=== PATIENT | female | born 2000 | race American Indian/Alaskan Native ===

== ENCOUNTER 2019-10-30 22:18 | Outpatient (CLI) | payer MEDICAID ==
[2019-10-30 22:39] VITALS: BP 112/64
[2019-10-30] MEDS ORDERED: LACTATED RINGERS 1,000 ML IV ONE (22:56)
[2019-10-30] MEDS ORDERED: LACTATED RINGERS 1,000 ML ONE (23:04)
[2019-10-30 23:25] LABS: Bacteria,Urine 1+ /HPF (Negative); Bilirubin,Urine NEG (Negative); Blood,Urine NEG (Negative); Color,Urine Yellow (Yellow); Mucus,Urine 3+ /HPF; Protein,Urine <15 mg/dL mg/dL (Negative)
[2019-10-31] MEDS ORDERED: ACETAMINOPHEN 500 MG TAB PO ONE (00:05)
== END 2019-10-31 00:26 | disposition home or self-care (01) ==
LOC: TRG 22:18 → APU 22:21 → TRG 10-31 00:26
PROVIDERS: ATTEND Obstetrics & Gynecology
DX: O26.893 Other specified pregnancy related conditions, third trimester (principal); M54.5 Low back pain; R10.12 Left upper quadrant pain; O47.03 False labor before 37 completed weeks of gestation, third trimester; Z3A.33 33 weeks gestation of pregnancy
CPT/HCPCS: 59025; 81001; 96360; J7120

== ENCOUNTER 2019-12-11 05:28 | Outpatient (CLI) | payer MEDICAID | END 2019-12-11 06:54 | disposition home or self-care (01) | LOC: TRG 05:28 | PROVIDERS: ATTEND Obstetrics & Gynecology | DX: O47.1 False labor at or after 37 completed weeks of gestation (principal); Z3A.39 39 weeks gestation of pregnancy | CPT/HCPCS: 59025 ==

== ENCOUNTER 2020-02-27 22:39 | Emergency (ER) | payer MEDICAID ==
[2020-02-27 22:46] VITALS: BP 117/67
--- NOTE | 2020-02-27 22:53 | Emergency Department Report ---
- General Chief complaint: Skin Rash Stated complaint: RIGHT SIDE SWOLLEN Time Seen by Provider: 02/27/20 22:47 Source: patient Mode of arrival: Ambulatory Limitations: No Limitations - History of Present Illness complaint: insect bite/sting (To the right hip to 3 days ago that now is very pruritic and swollen in nature reports no tenderness no fever chills or sweats. Not responding to AMD ointment) Tetanus Up to Date: yes Severity: mild Consistency: constant Improves with: none Worsens with: none Context: none Associated symptoms: itching - Related Data Home Medications Medication Instructions Recorded Confirmed Last Taken Vitamin 1 tab PO DAILY 12/11/19 12/11/19 12/09/19 Previous Rx's Medication Instructions Recorded Last Taken Type Ferrous Sulfate [Feosol 325 MG tab] 325 mg PO BID #60 tablet 12/12/19 Unknown Rx Ibuprofen [Motrin] 800 mg PO Q8HR PRN #30 tablet 12/12/19 Unknown Rx hydrOXYzine HCL [Atarax] 25 mg PO Q6HR PRN #20 tablet 02/27/20 Unknown Rx Allergies Allergy/AdvReac Type Severity Reaction Status Date / Time No Known Allergies Allergy Verified 10/30/19 22:52 Abscess Boil HPI - HPI Chief Complaint: Skin Rash Stated Complaint: RIGHT SIDE SWOLLEN Time Seen by Provider: 02/27/20 22:47 Home Medications: Home Medications Medication Instructions Recorded Confirmed Last Taken Vitamin 1 tab PO DAILY 12/11/19 12/11/19 12/09/19 Previous Rx's Medication Instructions Recorded Last Taken Type Ferrous Sulfate [Feosol 325 MG tab] 325 mg PO BID #60 tablet 12/12/19 Unknown Rx Ibuprofen [Motrin] 800 mg PO Q8HR PRN #30 tablet 12/12/19 Unknown Rx hydrOXYzine HCL [Atarax] 25 mg PO Q6HR PRN #20 tablet 02/27/20 Unknown Rx Allergies/Adverse Reactions: Allergies Allergy/AdvReac Type Severity Reaction Status Date / Time No Known Allergies Allergy Verified 10/30/19 22:52 ED Review of Systems ROS: Stated complaint: RIGHT SIDE SWOLLEN Other details as noted in HPI Comment: All other systems reviewed and negative ED Past Medical Hx - Past Medical History Previous Medical History?: No Hx Hypertension: No Hx Congestive Heart Failure: No Hx Diabetes: No Hx Deep Vein Thrombosis: No Hx Renal Disease: No Hx Sickle Cell Disease: No Hx Seizures: No Hx Asthma: No Hx COPD: No - Surgical History Past Surgical History?: No - Social History Smoking Status: Never Smoker Substance Use Type: None - Medications Home Medications: Home Medications Medication Instructions Recorded Confirmed Last Taken Type Vitamin 1 tab PO DAILY 12/11/19 12/11/19 12/09/19 History Ferrous Sulfate [Feosol 325 MG tab] 325 mg PO BID #60 tablet 12/12/19 Unknown Rx Ibuprofen [Motrin] 800 mg PO Q8HR PRN #30 tablet 12/12/19 Unknown Rx hydrOXYzine HCL [Atarax] 25 mg PO Q6HR PRN #20 tablet 02/27/20 Unknown Rx ED Physical Exam - General Limitations: No Limitations General appearance: alert, in no apparent distress - Head Head exam: Present: atraumatic, normocephalic - Eye Eye exam: Present: normal appearance, PERRL, EOMI Pupils: Present: normal accommodation - ENT ENT exam: Present: normal exam, mucous membranes moist - Neck Neck exam: Present: normal inspection - Respiratory Respiratory exam: Present: normal lung sounds bilaterally. Absent: respiratory distress - Cardiovascular Cardiovascular Exam: Present: regular rate, normal rhythm. Absent: systolic mu rmur, diastolic murmur, rubs, gallop - GI/Abdominal GI/Abdominal exam: Present: soft, normal bowel sounds - Extremities Exam Extremities exam: Present: normal inspection - Back Exam Back exam: Present: normal inspection - Neurological Exam Neurological exam: Present: alert, oriented X3 - Psychiatric Psychiatric exam: Present: normal affect, normal mood - Skin Skin exam: Present: warm, dry, intact, urticaria. Absent: rash - Expanded Skin Exam Expanded 1 - Area of the hive no induration noted. No abscess no fluctuance ED Course Vital Signs 02/27/20 22:43 Temperature 98.2 F Pulse Rate 99 H Respiratory 20 Rate Blood Pressure 117/67 O2 Sat by Pulse 98 Oximetry Critical care attestation.: If time is entered above; I have spent that time in minutes in the direct care of this critically ill patient, excluding procedure time. ED Disposition Clinical Impression: Hive, Insect bite Disposition: DC-01 TO HOME OR SELFCARE Is pt being admited?: No Does the pt Need Aspirin: No Condition: Stable Instructions: Rash, Adult, Hives, Insect Bite, Adult, [id number] Additional Instructions: Please try [id number] Benadryl cream and hydrocortisone cream mixed together in conjunction with Claritin or Gem. Also apply ice to the area to help decrease the inflammatory cascade. If no improvement after 3 to 4 days please seek reevaluation Prescriptions: hydrOXYzine HCL [Atarax] 25 mg PO Q6HR PRN #20 tablet PRN Reason: Itching Referrals: [facility] [Provider Group] - 3-5 Days
== END 2020-02-27 22:57 | disposition home or self-care (01) ==
LOC: ED 22:39
DX: L50.9 Urticaria, unspecified (principal); Z79.899 Other long term (current) drug therapy; W57.XXXA Bitten or stung by nonvenomous insect and other nonvenomous arthropods, initial encounter; Y93.89 Activity, other specified; Y92.89 Other specified places as the place of occurrence of the external cause; Y99.8 Other external cause status
CPT/HCPCS: 99282

== ENCOUNTER 2021-01-11 12:06 | Outpatient (CLI) | payer MEDICAID ==
[2021-01-11 12:39] VITALS: BP 116/67
[2021-01-11] MEDS ORDERED: LACTATED RINGERS 1,000 ML IV ONE (13:00)
[2021-01-11] MEDS ORDERED: ONDANSETRON 4 MG/2 ML INJ IV ONE (13:00)
[2021-01-11 14:51] LABS: Bacteria,Urine 1+ /HPF (Negative); Bilirubin,Urine NEG (Negative); Blood,Urine NEG (Negative); Color,Urine Yellow (Yellow); Mucus,Urine 3+ /HPF
== END 2021-01-11 15:40 | disposition home or self-care (01) ==
LOC: TRG 12:06 → APU 12:09 → TRG 15:40
PROVIDERS: ATTEND Obstetrics & Gynecology
DX: O21.2 Late vomiting of pregnancy (principal); O26.892 Other specified pregnancy related conditions, second trimester; R10.9 Unspecified abdominal pain; R53.1 Weakness; Z3A.20 20 weeks gestation of pregnancy
CPT/HCPCS: 81001; 87086; 96361; 96374; J2405; J7120; J3490

== ENCOUNTER 2021-04-09 11:01 | Outpatient (CLI) | payer MEDICAID ==
[2021-04-09 11:29] VITALS: BP 109/63
[2021-04-09 12:59] LABS: Bilirubin,Urine NEG (Negative); Blood,Urine MOD (Negative); Color,Urine Yellow (Yellow); Mucus,Urine FEW /HPF; Urobilinogen,Urine < 2.0 mg/dL (<2.0)
== END 2021-04-09 13:39 | disposition home or self-care (01) ==
LOC: TRG 11:01 → APU 11:02 → TRG 13:39
PROVIDERS: ATTEND Obstetrics & Gynecology
DX: O46.93 Antepartum hemorrhage, unspecified, third trimester (principal); O62.9 Abnormality of forces of labor, unspecified; O26.893 Other specified pregnancy related conditions, third trimester; R10.2 Pelvic and perineal pain; Z3A.33 33 weeks gestation of pregnancy
CPT/HCPCS: 59025; 81001; 87086; 96360; J7120

== ENCOUNTER 2021-05-12 19:53 | Outpatient (CLI) | payer MEDICAID ==
[2021-05-12 21:19] LABS: Bacteria,Urine 1+ /HPF (Negative); Mucus,Urine 3+ /HPF
[2021-05-12 21:33] LABS: Bilirubin,Urine Negative (Negative); Blood,Urine Negative (Negative); Color,Urine Yellow (Yellow)
[2021-05-12 21:34] LABS: Urobilinogen,Urine < 2.0 mg/dL (<2.0)
[2021-05-12] MEDS ORDERED: LIDOCAINE-MPF (1%) 10 MG/1 ML VIAL 5 ML INFILTRATI ONE (23:37)
[2021-05-12 23:50] VITALS: BP 116/62
== END 2021-05-12 23:39 | disposition home or self-care (01) ==
LOC: TRG 19:53 → APU 19:54 → TRG 23:39
PROVIDERS: ATTEND Obstetrics & Gynecology
DX: Z34.93 Encounter for supervision of normal pregnancy, unspecified, third trimester (principal); Z3A.38 38 weeks gestation of pregnancy
CPT/HCPCS: 81001; 87086; J0696; J3490

== ENCOUNTER 2021-05-14 04:42 | Outpatient (CLI) | payer MEDICAID ==
[2021-05-14 05:44] LABS: Mucus,Urine FEW /HPF
[2021-05-14 05:45] LABS: Color,Urine Straw (Yellow)
[2021-05-14 05:47] LABS: Bilirubin,Urine Negative (Negative)
[2021-05-14 05:48] LABS: Blood,Urine Trace (Negative)
[2021-05-14 05:49] LABS: Protein,Urine <30 mg dL mg/dL (Negative); Urobilinogen,Urine < 2.0 mg/dL (<2.0)
[2021-05-14 08:15] VITALS: BP 101/63
[2021-05-14] MEDS ORDERED: ACETAMINOPHEN W/CODEINE 300-30 MG TAB PO NR (08:34)
== END 2021-05-14 09:03 | disposition home or self-care (01) ==
LOC: TRG 04:42 → APU 04:43 → TRG 09:03
PROVIDERS: ATTEND Obstetrics & Gynecology
DX: Z34.93 Encounter for supervision of normal pregnancy, unspecified, third trimester (principal); Z3A.38 38 weeks gestation of pregnancy
CPT/HCPCS: 59025; 81001; Q0177

== ENCOUNTER 2021-05-16 13:26 | Outpatient (CLI) | payer MEDICAID ==
[2021-05-16 14:05] VITALS: BP 119/72
== END 2021-05-16 14:58 | disposition home or self-care (01) ==
LOC: TRG 13:26 → APU 13:28 → TRG 14:58
PROVIDERS: ATTEND Obstetrics & Gynecology
DX: Z34.93 Encounter for supervision of normal pregnancy, unspecified, third trimester (principal); Z3A.38 38 weeks gestation of pregnancy
CPT/HCPCS: 59025

== ENCOUNTER 2021-05-17 21:40 | Inpatient (IN) | payer MEDICAID ==
[2021-05-17] MEDS ORDERED: LACTATED RINGERS 1,000 ML ONE (22:30)
[2021-05-17] MEDS ORDERED: LIDOCAINE (2%) 20 MG/1 ML VIAL 20 ML MDV INFILTRATI ONE (22:55)
[2021-05-17] MEDS ORDERED: MINERAL OIL 30 ML ORAL LIQD PO PRN (22:55)
[2021-05-17] MEDS ORDERED: NALOXONE 0.4 MG/1 ML INJ IV PRN (22:55)
[2021-05-17] MEDS ORDERED: LOPERAMIDE 2 MG CAP PO PRN (22:55)
[2021-05-17] MEDS ORDERED: fentaNYL 100 MCG/2 ML INJ IV PRN (22:55)
[2021-05-17] MEDS ORDERED: BUTORPHANOL 2 MG/1 ML INJ IV PRN (22:55)
[2021-05-17] MEDS ORDERED: miSOPROStol 200 MCG TAB PR PRN (22:55)
[2021-05-17] MEDS ORDERED: OXYTOCIN 10 UNIT/1 ML INJ IM PRN (22:55)
[2021-05-17] MEDS ORDERED: CARBOPROST TROMETHAMINE 250 MCG/1 ML INJ IM PRN (22:55)
[2021-05-17] MEDS ORDERED: ACETAMINOPHEN 325 MG TAB PO PRN (22:55)
[2021-05-17] MEDS ORDERED: TERBUTALINE 1 MG/1 ML INJ SUB-Q PRN (22:55)
[2021-05-17] MEDS ORDERED: METHYLERGONOVINE MALEATE 0.2 MG/ML VIAL IM PRN (22:55)
[2021-05-17] MEDS ORDERED: ePHEDrine SULFATE 50 MG/1 ML INJ IV PRN ×2 (22:55→23:41)
[2021-05-17] MEDS ORDERED: ONDANSETRON 4 MG/2 ML INJ IV PRN (22:55)
[2021-05-17] MEDS ORDERED: OXYTOCIN DRIP 30 UNITS/500 ML BAG IV SCH (23:00)
[2021-05-17 23:27] LABS: Hemoglobin 10.8 gm/dl (10.1-14.3); Mean Corpuscular HGB Conc 33 % (30-34); Mean Corpuscular Volume 84 fl (79-97); Platelet Count 181 K/mm3 (140-440); Red Blood Count 3.92 M/mm3 (3.65-5.03)
[2021-05-17 23:31] LABS: Red Cell Distribution Width 26.8 % (13.2-15.2)
[2021-05-17] MEDS ORDERED: NALOXONE 2 MG/2 ML INJ IV PRN (23:41)
[2021-05-17] MEDS: LACTATED RINGERS 1,000 ML IV SCH (23:41)
[2021-05-17] MEDS ORDERED: fentaNYL-BUPIV 2 MCG/ML-0.125% 200 MCG/100 ML BAG EPIDURAL SCH (23:45)
--- NOTE | 2021-05-18 00:05 | Anesthesia Consultation ---
Anesthesia Consult and Med Hx Date of service: 05/18/21 - Airway Anesthetic Teeth Evaluation: Poor ROM Head & Neck: Adequate Mental/Hyoid Distance: Adequate Mallampati Class: Class II Intubation Access Assessment: Probably Good - Pulmonary Exam CTA: Yes - Cardiac Exam Cardiac Exam: RRR - Pre-Operative Health Status ASA Pre-Surgery Classification: ASA2 Proposed Anesthetic Plan: Epidural - Pulmonary Hx Asthma: No COPD: No Hx Pneumonia: No - Cardiovascular System Hx Hypertension: No - Central Nervous System Hx Seizures: No Hx Psychiatric Problems: No - Endocrine Hx Renal Disease: No Hx End Stage Renal Disease: No Hx Hypothyroidism: No Hx Hyperthyroidism: No - Hematic Hx Anemia: Yes Hx Sickle Cell Disease: No - Other Systems Hx Alcohol Use: No Hx Substance Use: No
--- NOTE | 2021-05-18 00:07 | Progress Note ---
Labor Epidural - Labor Epidural Start Time: 23:44 Stop Time: 23:53 Performed by:: DYLON DICKSON Procedure: Patient is requesting epidural for labor pain. H&P and labs reviewed. Procedure explained, questions answered, consent obtained. Patient placed in sitting position with monitors applied. Timeout performed immediately before start of procedure. Prep/drape in usual sterile fashion. Skin localized 3 mL 1% lidocaine at L[3]-L[4] interspace. 17-gauge Touhy epidural needle advanced to MAURICE with saline at [6] cm. No blood/CSF noted via epidural needle. Epidural catheter advanced to [10] cm. Negative aspiration for blood and CSF via catheter, negative response to test dose 3 ml 1.5% lidocaine w/ Epi. Sterile dressing applied followed by tape reinforcement. Patient tolerated procedure well. No immediate complications noted.
[2021-05-18] MEDS ORDERED: metroNIDAZOLE 500 MG TAB PO ONE (00:14)
[2021-05-18] MEDS: LACTATED RINGERS 1,000 ML IV SCH (01:33)
[2021-05-18] MEDS: OXYTOCIN DRIP 30 UNITS/500 ML BAG IV SCH ×2 (04:44→06:02)
--- NOTE | 2021-05-18 05:02 | History and Physical Report ---
History of Present Illness Date of examination: 05/18/21 Date of admission: 05/17/21 22:55 Chief complaint: contractions History of present illness: Pt is a 20 year old DOMENICA 05/26/21 at 38w6d who presents with regular painful contractions and advanced cervical dilation of 5 cm. She denies leakage of fluid or vaginal bleeding. She has had care at [facility] since 10 wks complicated by trichomonas treated with no test of cure, subchorionic hemorrhage in the first trimester, anemia s/p Hematology referral, left pyelectasis resolved by [facility] report. She is GBS negative. Past History Past Medical History: no pertinent history Past Surgical History: MEDICINE TECH/uterine surgery (Nexplanon insertion and removal ) MEDICINE TECH History: chlamydia (remote history ), gonorrhea (remote history ), trichomonas (treated without test of cure ) Family/Genetic History: diabetes, heart disease, hypertension Social history: no significant social history - Obstetrical History Expected Date of Delivery: 05/26/21 Actual Gestation: 38 Week(s) 6 Day(s) : 2 Para: 1 Hx # Term Pregnancies: 1 Number of Pregnancies: 0 Spontaneous Abortions: 0 Induced : 0 Number of Living Children: 1 Medications and Allergies Allergies Allergy/AdvReac Type Severity Reaction Status Date / Time No Known Allergies Allergy Verified 10/30/19 22:52 Home Medications Medication Instructions Recorded Confirmed Last Taken Type Vitamin 1 tab PO DAILY 12/11/19 12/11/19 12/09/19 History Ferrous Sulfate [Feosol 325 MG tab] 325 mg PO BID #60 tablet 12/12/19 Unknown Rx Ibuprofen [Motrin] 800 mg PO Q8HR PRN #30 tablet 12/12/19 Unknown Rx hydrOXYzine HCL [Atarax] 25 mg PO Q6HR PRN #20 tablet 02/27/20 Unknown Rx Active Meds: Active Medications Acetaminophen (Acetaminophen 325 Mg Tab) 650 mg PO Q4H PRN PRN Reason: Pain, Mild (1-3) Butorphanol Tartrate (Butorphanol 2 Mg/1 Ml Inj) 1 mg IV Q2H PRN PRN Reason: Pain, Moderate(4-6) LABOR PAIN Carboprost Tromethamine (Carboprost Tromethamine 250 Mcg/1 Ml Inj) 250 mcg IM ONCE PRN PRN Reason: Uterine Bleeding Ephedrine Sulfate (Ephedrine Sulfate 50 Mg/1 Ml Inj) 10 mg IV Q2M PRN PRN Reason: Hypotension Last Admin: 05/18/21 03:41 Dose: 10 mg Fentanyl (Fentanyl 100 Mcg/2 Ml Inj) 100 mcg IV Q2H PRN PRN Reason: Pain,Severe (7-10) LABOR PAIN Oxytocin/Sodium Chloride (Pitocin/Ns 30 Unit/500ml) 30 units in 500 mls @ 2 mls/hr IV TITR SADA; Protocol Lactated Ringer's (Lactated Ringers) 1,000 mls @ 125 mls/hr IV DIRECT SADA Last Admin: 05/18/21 01:33 Dose: 125 mls/hr Oxytocin/Sodium Chloride (Pitocin/Ns 30 Unit/500ml) 30 units in 500 mls @ 40 mls/hr IV TITR SADA; Protocol Fentanyl/Bupivacaine/Sodium Chlor (Fentanyl-Bupiv 2 Mcg/Ml-0.125%) 200 mcg in 100 mls @ 12 mls/hr EPIDURAL TITR SADA; Protocol Last Admin: 05/18/21 01:34 Dose: 12 mls/hr Loperamide HCl (Loperamide 2 Mg Cap) 2 mg PO ONCE PRN PRN Reason: give with Hemabate Mineral Oil (Mineral Oil 30 Ml Oral Liqd) 30 ml PO QHS PRN PRN Reason: Constipation Naloxone HCl (Naloxone 0.4 Mg/1 Ml Inj) 0.1 mg IV Q2MIN PRN PRN Reason: Res Rate </= 8 or 02 SAT < 92% Naloxone HCl (Naloxone 2 Mg/2 Ml Inj) 0.2 mg IV Q5M PRN PRN Reason: Respiratory sedation Ondansetron HCl (Ondansetron 4 Mg/2 Ml Inj) 4 mg IV Q8H PRN PRN Reason: Nausea And Vomiting Oxytocin (Oxytocin 10 Unit/1 Ml Inj) 10 unit IM ONCE PRN PRN Reason: Uterine Bleeding Terbutaline Sulfate (Terbutaline 1 Mg/1 Ml Inj) 0.25 mg SUB-Q ONCE PRN PRN Reason: Hyperstimulation/Hypertonicity Review of Systems All systems: negative - Vital Signs Vital signs: Vital Signs Pulse Pulse Ox 89 100 05/17/21 23:24 05/17/21 23:24 Temp Pulse Resp BP Pulse Ox 90 101/62 99 05/18/21 04:56 05/18/21 04:41 05/18/21 04:56 - Physical Exam Breasts: Positive: deferred Abdomen: Positive: soft (gravid ) Genitourinary (Female): Positive: normal external genitalia Uterus: Positive: enlarged (gravid ) Extremities: Positive: normal - Obstetrical FHR: auscultation normal Uterine Contraction Monitor Mode: External Cervical Dilatation: 10 Cervical Effacement Percentage: 100 station: +2 Uterine Contraction Pattern: Regular Uterine Tone Measurement Phase: Resting Uterine Contraction Intensity: Strong/Firm Results Result Diagrams: 05/17/21 22:40 Abnormal lab results 05/17/21 Range/Units 22:40 RDW 26.8 H (13.2-15.2) % All other labs normal. Assessment and Plan A: IUP at 38w6d Transitional Labor Trichomonas treated 05/05/21 without test of cure GBS negative P: Admit to labor and delivery Routine intrapartum care Anticipate vaginal delivery
--- NOTE | 2021-05-18 05:09 | Procedure Note ---
OB Delivery Note - Delivery Date of Delivery: 05/18/21 Surgeon: SUJATHA HDEZ Estimated blood loss: 300cc - Vaginal Delivery presentation: vertex Delivery position: OA Intrapartum events: decreased FHT variability, uterine atony (s/p Methergine 0.2 mg IM and Misoprostol 800 mcg per rectum ) Delivery induction: AROM Delivery augmentation: rupture of membranes, pitocin Delivery monitor: external FHT, external uterine Route of delivery: Delivery placenta: spontaneous Episiotomy: none Delivery laceration: none Anesthesia: epidural Delivery comments: Pt progressed to complete/complete/+2. AROM performed with egress of clear fluid. She went on to deliver a viable male over intact perineum under epidural anesthesia via spontaneous vaginal delivery. Head delivered in RHETT presentation. Shoulders and body delivered easily. placed on maternal abdomen and bulb suctioned. Cord clamped and cut. Cord blood collected. Placenta delivered spontaneously (3VC, intact). Uterine atony noted despite pitocin infusing. Methergine 0.2 mg IM administered with improvement in uterine bleeding and tone. Vagina and perineum explored. No lacerations noted. Misoprostol 800 mcg placed per rectum. Fundus firm with scant lochia. EBL 300 mL.
[2021-05-18] MEDS ORDERED: LANOLIN/ZINC/DIMETHICONE (LANSINOH) 7 GM TP PRN ×2 (11:43)
[2021-05-18] MEDS ORDERED: MAGNESIUM HYDROXIDE (MOM) ORAL LIQD UDC PO PRN (11:43)
[2021-05-18] MEDS ORDERED: WITCH HAZEL/ GLYCERIN PAD TP PRN (11:43)
[2021-05-18] MEDS ORDERED: BENZOCAINE/MENTHOL 20/0.5% TOP SPRAY 56 GM TP PRN (11:43)
[2021-05-18] MEDS ORDERED: diphenhydrAMINE 25 MG CAP PO PRN (11:43)
[2021-05-18] MEDS ORDERED: ONDANSETRON 4 MG/2 ML INJ IV PRN (11:43)
[2021-05-18] MEDS ORDERED: PROMETHAZINE 25 MG RECT SUPP PR PRN (11:43)
[2021-05-18] MEDS ORDERED: PROMETHAZINE 25 MG TAB PO PRN (11:43)
[2021-05-18] MEDS: FERROUS SULFATE 325 MG TAB PO SCH ×2 (12:01→21:42)
[2021-05-18] MEDS: IBUPROFEN 800 MG TAB PO SCH ×2 (12:03→18:49)
--- NOTE | 2021-05-18 13:05 | Post Anesthesia Evaluation ---
- Post Anesthesia Evaluation Patient Participated: Yes Airway Patent: Yes Stable Respiratory Function: Yes Nausea/Vomiting: No Temp > 96.8F: Yes Pain Manageable: Yes Adequeate Hydration: Yes Anesthesia Complications: No Block Receding Appropriately: Yes Patient on Ventilator: No
[2021-05-18 16:59] LABS: Hematocrit 32.4 % (30.3-42.9); Hemoglobin 10.3 gm/dl (10.1-14.3)
[2021-05-19] MEDS: IBUPROFEN 800 MG TAB PO SCH (03:05)
[2021-05-19] MEDS ORDERED: TETANUS,DIPH,PERTUSS(ACELL) VACCINE 0.5 ML SYRINGE IM ONE (05:10)
[2021-05-19] MEDS ORDERED: MEASLES, MUMPS & RUBELLA 12,500 UNIT/0.5 ML VACCINE SUB-Q ONE (05:10)
--- NOTE | 2021-05-19 07:54 | Progress Note ---
Assessment and Plan - Patient Problems (1) Vaginal delivery Current Visit: Yes Status: Acute Plan to address problem: Routine care Discharge home Subjective - Subjective Date of service: 05/19/21 Interval history: Patient is without complaints. She reports that her pain is well controlled. Patient reports: appetite normal, voiding normally, pain well controlled Anthony: doing well Objective - Vital Signs Latest vital signs: Vital Signs Temp Pulse Resp BP BP Pulse Ox Pulse Ox 05/19/21 03:05 18 05/19/21 00:00 98.6 F 85 18 102/56 98 05/18/21 20:00 98 05/18/21 15:09 98.2 F 82 18 119/75 98 05/18/21 10:45 98.1 F 85 18 115/73 98 98 05/18/21 08:52 78 100 05/18/21 08:47 72 100 05/18/21 08:42 75 100 05/18/21 08:37 76 100 05/18/21 08:32 76 100 05/18/21 08:29 97 H 133/77 05/18/21 08:27 72 100 05/18/21 08:22 80 99 05/18/21 08:17 103 H 99 05/18/21 08:14 76 124/61 05/18/21 08:12 74 99 05/18/21 08:07 78 99 05/18/21 08:02 78 100 05/18/21 07:59 75 119/70 05/18/21 07:57 78 98 Intake and Output 05/18/21 05/19/21 05/19/21 22:59 06:59 14:59 Intake Total 360 480 Output Total 650 Balance -290 480 Intake: Oral 360 120 Intake, Free Water 360 Output: Urine 650 Void 650 Other: Total, Intake Amount 120 120 Total, Output Amount 300 # Voids Void 1 1 - Exam Uterus: Present: normal, firm
--- NOTE | 2021-05-19 07:55 | Discharge Summary ---
Providers - Providers Date of Admission: 05/17/21 22:55 Date of discharge: 05/19/21 Attending physician: SUJATHA HDEZ 05/18/21 11:43 Consult to Engagement Manager [CONS] Routine Reason For Exam: assistance with , SNS Primary care physician: SUJATHA HDEZ Hospitalization Reason for admission: active labor Delivery: Discharge diagnosis: IUP at term delivered Hospital course: Patient presented to labor and delivery in active labor. She had a successful vaginal delivery. course was uneventful. Condition at discharge: Good Disposition: 01 HOME / SELF CARE / HOMELESS - Discharge Diagnoses (1) Vaginal delivery Status: Acute Plan - Discharge Medications Prescriptions: Ibuprofen [Motrin] 800 mg PO Q8HR PRN #30 tablet PRN Reason: Pain , Severe (7-10) HYDROcodone/APAP 5-325 [[place] 5/325] 1 each PO Q6HR PRN #15 tablet PRN Reason: Pain - Provider Discharge Summary Activity: no sex for 6 weeks, no heavy lifting 4 weeks, no strenuous exercise Diet: routine Instructions: routine Additional instructions: [] Smoking cessation referral if applicable(refer to patient education folder for contact #) [] Refer to [facility] Booklet Call your doctor immediately for: * Fever > 100.5 * Heavy vaginal bleeding ( >1 pad per hour) * Severe persistent headache * Shortness of breath * Reddened, hot, painful area to leg or breast * Schedule visit in 4 weeks - Follow up plan
[2021-05-19] MEDS: HYDROcodone/ACETAMINOPHEN 5-325 MG TAB PO PRN (18:44)
[2021-05-19] MEDS: FERROUS SULFATE 325 MG TAB PO SCH ×2 (18:44→22:53)
[2021-05-20] MEDS: IBUPROFEN 800 MG TAB PO SCH ×2 (06:03→11:45)
[2021-05-20] MEDS: HYDROcodone/ACETAMINOPHEN 5-325 MG TAB PO PRN (06:06)
[2021-05-20] MEDS: FERROUS SULFATE 325 MG TAB PO SCH (11:06)
[2021-05-20 21:17] VITALS: BP 118/72
== END 2021-05-20 19:50 | disposition home or self-care (01) | DRG 775 ==
LOC: TRG 21:40 → APU 21:42 → TRG 22:55 → LD 22:55 → OB 05-18 10:23
PROVIDERS: ADMIT Obstetrics & Gynecology; ATTEND Obstetrics & Gynecology
PROC: 10E0XZZ Delivery of Products of Conception, External Approach (ICD-10-PCS; principal; 2021-05-18)
PROC: 10907ZC Drainage of Amniotic Fluid, Therapeutic from Products of Conception, Via Natural or Artificial Opening (ICD-10-PCS; 2021-05-18)
PROC: 3E0R3BZ Introduction of Anesthetic Agent into Spinal Canal, Percutaneous Approach (ICD-10-PCS; 2021-05-18)
PROC: 00HU33Z Insertion of Infusion Device into Spinal Canal, Percutaneous Approach (ICD-10-PCS; 2021-05-18)
PROC: 3E0234Z Introduction of Serum, Toxoid and Vaccine into Muscle, Percutaneous Approach (ICD-10-PCS; 2021-05-19)
PROC: 3E0134Z Introduction of Serum, Toxoid and Vaccine into Subcutaneous Tissue, Percutaneous Approach (ICD-10-PCS; 2021-05-19)
DX: O76 Abnormality in fetal heart rate and rhythm complicating labor and delivery (principal); Z3A.38 38 weeks gestation of pregnancy; Z37.0 Single live birth; Z20.822 Contact with and (suspected) exposure to COVID-19; O62.2 Other uterine inertia; Z23 Encounter for immunization; Z83.3 Family history of diabetes mellitus; Z82.49 Family history of ischemic heart disease and other diseases of the circulatory system
CPT/HCPCS: 36415; 59025; 85014; 85018; 85027; 86592; 86850; 86900; 86901; G0378; J3490; J2210; J2405; J2590; J7120; U0003

== ENCOUNTER 2021-08-22 19:11 | Emergency (ER) | payer MEDICAID ==
[2021-08-22 19:49] VITALS: BP 120/81
== END 2021-08-22 23:55 | disposition left against medical advice (07) ==
LOC: ED 19:11
DX: Z04.1 Encounter for examination and observation following transport accident (principal); Z53.21 Procedure and treatment not carried out due to patient leaving prior to being seen by health care provider; V89.2XXA Person injured in unspecified motor-vehicle accident, traffic, initial encounter; Y93.89 Activity, other specified; Y92.89 Other specified places as the place of occurrence of the external cause; Y99.8 Other external cause status